=== PATIENT | female | born 1990 | race Caucasian/White ===

== ENCOUNTER 2022-01-31 11:34 | Outpatient (REF) | payer OTHER, SELFPAY ==
[2022-01-31 12:05] LABS: COVID-19 Test Negative (Negative)
== END 2022-01-31 11:35 | disposition home or self-care (01) ==
LOC: HO.LAB 11:34
PROVIDERS: Visit Provider Internal Medicine
DX: Z20.822 Contact with and (suspected) exposure to COVID-19 (principal)
CPT/HCPCS: 87635; C9803

== ENCOUNTER 2022-06-08 13:46 | Emergency (ER) | payer OTHER, SELFPAY ==
--- NOTE | ~2022-06-08 | XR_ITS ---
EXAMINATION: XR CHEST CLINICAL INFORMATION: Cough and leukocytosis COMPARISON: None TECHNIQUE: 2 views of the chest were obtained. FINDINGS: No significant abnormality is noted involving the heart, lungs, mediastinum, bony thorax or soft tissues. XR/XR chest 2V IMPRESSION: Unremarkable examination.
--- NOTE | 2022-06-08 13:53 | ED.PSYCH ---
HPI - Psych General Chief Complaint: ETOH/Substance Use Stated Complaint: seeking detox Time Seen by Provider: 06/08/22 13:49 Source: patient, EMS and old records reviewed Mode of arrival: EMS Limitations: no limitations History of Present Illness HPI Narrative: 31 yo female with history of IVDA, using approximately 3 bundles of heroin per day who presents to the ER from home via EMS after she was found using IV heroin in the bathroom by her parents. They are concerned about her safety. Per EMS patient has had IV drug use problem for 5 years. Patient arrives to the ER tearful and upset. When asked why she is here in the ER she said because of the client solutions manager. She is not sure if she wants help for her drug problem. MD complaint: feels depressed and substance abuse Onset (ago): unknown Duration: constant History of same: Yes Relieving factors: none Exacerbating factors: none Context: recent drug abuse Associated psychiatric symptoms: depression Associated symptoms: denies other symptoms Treatments prior to arrival: none Related Data Home Medications Medication Instructions Recorded Confirmed levothyroxine 50 mcg PO DAILY 06/08/22 06/08/22 Allergies Allergy/AdvReac Type Severity Reaction Status Date / Time No Known Allergies Allergy Verified 06/08/22 14:38 Review of Systems Review of Systems: Constitutional: No Fever, No Chills ENT/Mouth: No sore throat, No Rhinorrhea Cardiovascular: No Chest Pain, No SOB Respiratory: + Cough, No Sputum Gastrointestinal: No Nausea, No Vomiting, No Diarrhea, No abdominal Pain Genitourinary: No Dysuria, No Urinary Frequency, No Hematuria Musculoskeletal: No joint pain, No Myalgias Skin: No Skin Lesions, No rash Neuro: No Weakness, No Numbness, No Dizziness, No Headache Psych: No Anxiety/Panic, No Depression, No SI, No HI, No AH, No VH Heme/Lymph: + Bruising, No Lymphadenopathy PMFSH Social History Social History Advance Directives: No Advance Directives Information Provided: No Physical Exam Vital Signs: Vital Signs: Last Vital Signs Temp 98 F 06/08/22 14:14 Pulse 78 06/08/22 16:18 Resp 17 06/08/22 16:18 BP 126/81 06/08/22 16:18 Pulse Ox 96 06/08/22 16:18 O2 Del Method 06/08/22 16:18 BMI result Body Mass Index 20.7 Appearance: Alert. Oriented X3. Tearful on the stretcher Eyes: Pupils equal, round and reactive to light. ENT: Pharynx normal. Neck: Normal inspection. Neck supple. CVS: Normal heart rate and rhythm. Pulses normal. Respiratory: No respiratory distress. Breath sounds normal. Abdomen: Soft and nontender. +BS x4 Skin: Skin warm and dry. Normal skin color. Normal skin turgor. No rashes. Extremities: No lower extremity edema. Bilateral UE with track hernandez and ecchymotic areas in various stages of healing, no surrounding erythema or warmth Neuro/psych: Oriented X 3. No motor deficit. No sensory deficit. CN II-XII intact. Flat affect. Answers questions with simple answers. Makes eye contact. Tearful at times. Course Course Course Narrative: 31-year-old female with history of IV drug use, who reportedly uses 3 bundles of heroin per day presents to the ER for evaluation for possible detox after her mother found her using IV drugs in the bathroom today. Mother is worried about her safety would like to pursue a Section 35. Patient at this time denies any suicidal or homicidal ideation. It is she is agreeable to getting help and detox. Will get basic lab workup, U tox and have the etiquette coach see her for possible placement to a detox facility. Reevaluation(s) Reevaluation #1: Labs showing WBC 14.9. She does have a mild cough, will check x-ray. She is afebrile and hemodynamically stable, heart rate 100 on arrival when she was crying and tearful. Heart rate normalized to 78 when she was calm. COVID is negative. Her urinalysis is consistent with infection. Her leukocytosis is most likely due to this. She is not septic. Will start her on oral Macrobid. Patient spoke with the etiquette coach and patient did intake at [facility]. Hopeful for placement tomorrow once insurance is verified. Will place patient in physician observation at this time. Physician observation started at 17:30. Patient placed in physician observation because patient is awaiting placement to detox. Patient is not on a Section 12, more comfortable keeping her here overnight to ensure safety. At the time observation was started patient's vital signs were stable. Patient is alert and oriented. Neuro exam is non-focal. CV: RRR and lungs are clear. Will continue to monitor and monitor for opiate withdrawal. Time: 17:33 MDM - Psych Lab Data Result diagrams: 06/08/22 15:55 06/08/22 15:55 Labs: Lab Results 06/08/22 06/08/22 06/08/22 Range/Units 14:30 14:30 14:30 WBC (4.8-10.8) X10*3/uL RBC (4.20-5.50) X10*6/uL Hgb (12.0-16.0) g/dl Hct (37.0-47.0) % MCV (80.0-98.0) fL MCH (27.0-33.0) pg MCHC (31.0-35.0) g/dl RDW (11.0-16.0) % Plt Count (160-400) X10*3/uL MPV (9.4-12.3) fL Immature Gran % (Auto) (0.0-0.4) % Neut % (Auto) (45-73) % Lymph % (Auto) (20-40) % [place] % (Auto) (2-11) % Eos % (Auto) (0-4) % Baso % (Auto) (0-2) % Lymph # (Auto) (1.2-4.9) X10*3/uL [place] # (Auto) (0.1-1.2) X10*3/uL Eos # (Auto) (0.0-0.4) X10*3/uL Baso # (Auto) (0.0-0.2) X10*3/uL Abs Immat Gran (auto) (0.00-0.03) X10*3/uL Absolute Neuts (auto) (2.0-8.3) x10*3/uL Absolute Nucleated RBC (0.0-0.012) X10*3/uL Nucleated RBC % (auto) (0.0-0.2) /100WBC Sodium (135-145) mmol/L Potassium (3.3-5.1) mmol/L Chloride (96-108) mmol/L Carbon Dioxide (22-29) mmol/L Anion Gap (12-20) BUN (9-16) mg/dL Creatinine (0.5-1.4) mg/dL Estim Creat Clear Calc Estimated GFR Random Glucose (60-115) mg/dL Calcium (8.4-10.2) mg/dL Magnesium (1.6-2.6) mg/dL Total Bilirubin (0.0-1.0) mg/dL Direct Bilirubin (0.0-0.5) mg/dL AST (5-31) U/L ALT (0-31) U/L Alkaline Phosphatase (39-117) U/L Total Protein (6.5-8.0) g/dL Albumin (3.5-5.0) g/dL Urine Color Urine Appearance Urine pH (5.0-9.0) Ur Specific [place] (1.005-1.025) Urine Protein (Neg-Trace) mg/dL Urine Glucose (UA) (Negative) mg/dL Urine Ketones (Negative) mg/dL Urine Blood (Negative) Urine Nitrite (Negative) Ur Leukocyte Esterase (Negative) Urine RBC (0-2) /HPF Urine WBC (0-5) /HPF Ur Squamous Epith Cells (0-2) /HPF Urine Bacteria (None Seen) Hyaline Casts (0-2) /LPF Urine Test NEGATIVE (NEGATIVE) Urine Opiates Screen POSITIVE H (Not Detect) Urine Fentanyl Screen POSITIVE H (Not Detect) Ur Barbiturates Screen Not Detected (Not Detect) Ur Phencyclidine Scrn Not Detected (Not Detect) Ur Amphetamines Screen Not Detected (Not Detect) U Benzodiazepines Scrn Not Detected (Not Detect) Urine Cocaine Screen POSITIVE H (Not Detect) U Marijuana (THC) Screen Not Detected (Not Detect) Ethyl Alcohol mg/dL COVID-19 (SILVER) Negative (Negative) COVID-19 Clin Com See Note 06/08/22 06/08/22 06/08/22 Range/Units 14:40 15:55 15:55 WBC 14.9 H (4.8-10.8) X10*3/uL RBC 5.06 (4.20-5.50) X10*6/uL Hgb 14.5 (12.0-16.0) g/dl Hct 42.2 (37.0-47.0) % MCV 83.4 (80.0-98.0) fL MCH 28.7 (27.0-33.0) pg MCHC 34.4 (31.0-35.0) g/dl RDW 12.5 (11.0-16.0) % Plt Count 430 H (160-400) X10*3/uL MPV 8.9 L (9.4-12.3) fL Immature Gran % (Auto) 0.6 H (0.0-0.4) % Neut % (Auto) 80.0 H (45-73) % Lymph % (Auto) 13.4 L (20-40) % [place] % (Auto) 5.5 (2-11) % Eos % (Auto) 0.1 (0-4) % Baso % (Auto) 0.4 (0-2) % Lymph # (Auto) 2.0 (1.2-4.9) X10*3/uL [place] # (Auto) 0.8 (0.1-1.2) X10*3/uL Eos # (Auto) 0.0 (0.0-0.4) X10*3/uL Baso # (Auto) 0.1 (0.0-0.2) X10*3/uL Abs Immat Gran (auto) 0.09 H (0.00-0.03) X10*3/uL Absolute Neuts (auto) 11.9 H (2.0-8.3) x10*3/uL Absolute Nucleated RBC 0.000 (0.0-0.012) X10*3/uL Nucleated RBC % (auto) 0.0 (0.0-0.2) /100WBC Sodium 140 (135-145) mmol/L Potassium 4.1 (3.3-5.1) mmol/L Chloride 102 (96-108) mmol/L Carbon Dioxide 26 (22-29) mmol/L Anion Gap 16 (12-20) BUN 8 L (9-16) mg/dL Creatinine 0.68 (0.5-1.4) mg/dL Estim Creat Clear Calc 107.3 Estimated GFR > 60 Random Glucose 100 (60-115) mg/dL Calcium 9.3 (8.4-10.2) mg/dL Magnesium 2.0 (1.6-2.6) mg/dL Total Bilirubin 0.4 (0.0-1.0) mg/dL Direct Bilirubin 0.2 (0.0-0.5) mg/dL AST 87 H (5-31) U/L ALT 99 H (0-31) U/L Alkaline Phosphatase 122 H (39-117) U/L Total Protein 7.7 (6.5-8.0) g/dL Albumin 4.2 (3.5-5.0) g/dL Urine Color Yellow Urine Appearance Clear Urine pH 6.5 (5.0-9.0) Ur Specific [place] 1.010 (1.005-1.025) Urine Protein Trace (Neg-Trace) mg/dL Urine Glucose (UA) Negative (Negative) mg/dL Urine Ketones Negative (Negative) mg/dL Urine Blood Trace H (Negative) Urine Nitrite Negative (Negative) Ur Leukocyte Esterase Moderate (2+) H (Negative) Urine RBC 0-2 (0-2) /HPF Urine WBC 21-50 H (0-5) /HPF Ur Squamous Epith Cells 0-2 (0-2) /HPF Urine Bacteria None Seen (None Seen) Hyaline Casts 0-2 (0-2) /LPF Urine Test (NEGATIVE) Urine Opiates Screen (Not Detect) Urine Fentanyl Screen (Not Detect) Ur Barbiturates Screen (Not Detect) Ur Phencyclidine Scrn (Not Detect) Ur Amphetamines Screen (Not Detect) U Benzodiazepines Scrn (Not Detect) Urine Cocaine Screen (Not Detect) U Marijuana (THC) Screen (Not Detect) Ethyl Alcohol mg/dL COVID-19 (SILVER) (Negative) COVID-19 Clin Com 06/08/22 Range/Units 15:55 WBC (4.8-10.8) X10*3/uL RBC (4.20-5.50) X10*6/uL Hgb (12.0-16.0) g/dl Hct (37.0-47.0) % MCV (80.0-98.0) fL MCH (27.0-33.0) pg MCHC (31.0-35.0) g/dl RDW (11.0-16.0) % Plt Count (160-400) X10*3/uL MPV (9.4-12.3) fL Immature Gran % (Auto) (0.0-0.4) % Neut % (Auto) (45-73) % Lymph % (Auto) (20-40) % [place] % (Auto) (2-11) % Eos % (Auto) (0-4) % Baso % (Auto) (0-2) % Lymph # (Auto) (1.2-4.9) X10*3/uL [place] # (Auto) (0.1-1.2) X10*3/uL Eos # (Auto) (0.0-0.4) X10*3/uL Baso # (Auto) (0.0-0.2) X10*3/uL Abs Immat Gran (auto) (0.00-0.03) X10*3/uL Absolute Neuts (auto) (2.0-8.3) x10*3/uL Absolute Nucleated RBC (0.0-0.012) X10*3/uL Nucleated RBC % (auto) (0.0-0.2) /100WBC Sodium (135-145) mmol/L Potassium (3.3-5.1) mmol/L Chloride (96-108) mmol/L Carbon Dioxide (22-29) mmol/L Anion Gap (12-20) BUN (9-16) mg/dL Creatinine (0.5-1.4) mg/dL Estim Creat Clear Calc Estimated GFR Random Glucose (60-115) mg/dL Calcium (8.4-10.2) mg/dL Magnesium (1.6-2.6) mg/dL Total Bilirubin (0.0-1.0) mg/dL Direct Bilirubin (0.0-0.5) mg/dL AST (5-31) U/L ALT (0-31) U/L Alkaline Phosphatase (39-117) U/L Total Protein (6.5-8.0) g/dL Albumin (3.5-5.0) g/dL Urine Color Urine Appearance Urine pH (5.0-9.0) Ur Specific [place] (1.005-1.025) Urine Protein (Neg-Trace) mg/dL Urine Glucose (UA) (Negative) mg/dL Urine Ketones (Negative) mg/dL Urine Blood (Negative) Urine Nitrite (Negative) Ur Leukocyte Esterase (Negative) Urine RBC (0-2) /HPF Urine WBC (0-5) /HPF Ur Squamous Epith Cells (0-2) /HPF Urine Bacteria (None Seen) Hyaline Casts (0-2) /LPF Urine Test (NEGATIVE) Urine Opiates Screen (Not Detect) Urine Fentanyl Screen (Not Detect) Ur Barbiturates Screen (Not Detect) Ur Phencyclidine Scrn (Not Detect) Ur Amphetamines Screen (Not Detect) U Benzodiazepines Scrn (Not Detect) Urine Cocaine Screen (Not Detect) U Marijuana (THC) Screen (Not Detect) Ethyl Alcohol < 10 mg/dL COVID-19 (SILVER) (Negative) COVID-19 Clin Com Discharge Plan Discharge Clinical Impression: Active intravenous drug use, Acute UTI Patient Disposition: Still a Patient Prescriptions: No Action levothyroxine 50 mcg 50 mcg PO DAILY
[2022-06-08 14:14] VITALS: BP 140/93; BP 160/90; PULSE 100; RESP 18; TEMP 36.6; O2SAT 100; O2SAT 98; BMI 20.7
[2022-06-08 14:55] LABS: Urine Pregnancy NEGATIVE (NEGATIVE)
[2022-06-08 14:56] LABS: UPreg QC Valid YES
[2022-06-08 15:03] LABS: COVID-19 Test Negative (Negative); IDNOW Serial# 16C4AD1C
[2022-06-08 15:04] LABS: Amphetamine Screen Urine Not Detected (Not Detect); Barbiturates, Urine Not Detected (Not Detect); Benzodiazepines Screen Urine Not Detected (Not Detect); Cannabinoid Screen Urine Not Detected (Not Detect); Cocaine Screen Urine POSITIVE (Not Detect); Fentanyl, urine POSITIVE (Not Detect); Opiate Screen Urine POSITIVE (Not Detect); Phencyclidine Screen Urine Not Detected (Not Detect)
--- NOTE | 2022-06-08 15:30 | PC.NURSE ---
Patient requesting assistance with detox related to drug use. health coach notified. Patient seen by
[2022-06-08 15:35] VITALS: PULSE 100
[2022-06-08 15:38] LABS: Appearance Urine Clear; Color Urine Yellow; Glucose Urine UA Negative (Negative); Leukocyte Esterase Urine Moderate (2+) (Negative); Nitrite Urine Negative (Negative); PH 6.5 (5.0-9.0); UMIC TRIGGER UACC YES; Urine Blood Trace (Negative); Urine Ketones Negative (Negative); Urine Protein Trace mg/dL (Neg-Trace)
[2022-06-08 15:45] LABS: Bacteria Urine None Seen (None Seen); Hyaline Casts Urine 0-2 /LPF (0-2); RBC Urine 0-2 /HPF (0-2); Squamous Epithelial Cell Urine 0-2 /HPF (0-2); UACC Culture Trigger YES; WBC Urine 21-50 /HPF (0-5)
[2022-06-08 16:02] LABS: MANUAL DIFF FLAG NO
[2022-06-08 16:14] LABS: Ethanol < 10 mg/dL
[2022-06-08 16:18] VITALS: BP 126/81; PULSE 78; RESP 17; O2SAT 96
[2022-06-08 16:18] LABS: Alanine Aminotransferase 99 U/L (0-31); Albumin Level 4.2 g/dL (3.5-5.0); Alkaline Phosphatase 122 U/L (39-117); Anion Gap 16 (12-20); Aspartate Amino Transferase 87 U/L (5-31); Basophils Absolute Auto 0.1 X10*3/uL (0.0-0.2); Basophils Percent Auto 0.4 % (0-2); Bilirubin Direct 0.2 mg/dL (0.0-0.5); Bilirubin Total 0.4 mg/dL (0.0-1.0); Blood Urea Nitrogen 8 mg/dL (9-16); Calcium 9.3 mg/dL (8.4-10.2); Carbon Dioxide 26 mmol/L (22-29); Chloride 102 mmol/L (96-108); Creatinine Clr Calc Pharmacy 107.3; Eosinophils Percent Auto 0.1 % (0-4); Estimated Glomerular Filt Rate > 60; Glucose Random 100 mg/dL (60-115); Hematocrit 42.2 % (37.0-47.0); Hemoglobin 14.5 g/dl (12.0-16.0); Imm Gran Abs Auto 0.09 X10*3/uL (0.00-0.03); Imm Gran Pct Auto 0.6 % (0.0-0.4); Lymphocytes Percent Auto 13.4 % (20-40); Mean Corpuscular HGB Conc 34.4 g/dl (31.0-35.0); Mean Corpuscular Hemoglobin 28.7 pg (27.0-33.0); Mean Corpuscular Volume 83.4 fL (80.0-98.0); Mean Platelet Volume 8.9 fL (9.4-12.3); Monocytes Absolute Auto 0.8 X10*3/uL (0.1-1.2); Monocytes Percent Auto 5.5 % (2-11); Neutrophils Absolute Auto 11.9 x10*3/uL (2.0-8.3); Platelet Count 430 X10*3/uL (160-400); Potassium 4.1 mmol/L (3.3-5.1); Red Blood Count 5.06 X10*6/uL (4.20-5.50); Red Cell Distribution Width 12.5 % (11.0-16.0); Sodium 140 mmol/L (135-145); Total Protein 7.7 g/dL (6.5-8.0); White Blood Count 14.9 X10*3/uL (4.8-10.8)
[2022-06-08] MEDS: Ibuprofen 600 MG TABLET PO (16:48)
--- NOTE | 2022-06-08 17:02 | PC.NURSE ---
Patient referred to [facility] for Detox. Yudith states she will call in morning after insurance verification for placement. Patient information/paperwork faxed to Yudith [phone], confirmation received.
--- NOTE | 2022-06-08 17:12 | MHC.RECOVSUP ---
Addendum entered by Jeffrey Millan [facility] 06/08/22 17:24: Admission time 930 on 06/09 at [facility]. Original Note: Recovery Support note: Patient is a 31 year old [place]isian speaking female who presented to [facility] via EMS after her parents found her using substances. Patient expressed interest in receiving help for her substance use. Patient expressed a desire to stop using but a fear of withdrawal. Discussed different levels of care with patient. Patient agreeable to being referred to ATS facilities. Patient completed intake with [facility]. Plan to follow up with [facility] tomorrow morning to plan patient's admission. Discussed case with patient's RN.
[2022-06-08] MEDS: Nitrofurantoin Monohyd/M-Cryst 100 MG CAPSULE PO (21:28)
[2022-06-09 00:10] VITALS: BP 130/78; PULSE 82; RESP 15; TEMP 36.6; O2SAT 96
--- NOTE | 2022-06-09 05:45 | PC.NURSE ---
Patient slept through the night, no distress observed/reported, asymptomatic of ETOH withdrawal, med rec completed/pending provider's approval, patient was assessed by [facility] and recovery team, disposition detox bed search, recovery team coordinating the detox bed search, behavior non concerning, VSS, will continue to monitor.
[2022-06-09 08:07] VITALS: BP 156/87; PULSE 104; RESP 17; TEMP 36.6; O2SAT 95
[2022-06-09] MEDS: Nitrofurantoin Monohyd/M-Cryst 100 MG CAPSULE PO (08:21)
== END 2022-06-09 09:18 | disposition skilled nursing facility (03) ==
PROVIDERS: Physician Assistant; Emergency Provider Emergency Medicine
DX: F19.10 Other psychoactive substance abuse, uncomplicated (principal); N39.0 Urinary tract infection, site not specified; F32.A Depression, unspecified; R05.9 Cough, unspecified; Z20.822 Contact with and (suspected) exposure to COVID-19
CPT/HCPCS: 36415; 71046; 80048; 80076; 80307; 81001; 81025; 82077; 83735; 85025; 87086; 87635; 99284

== ENCOUNTER 2022-07-21 19:04 | Emergency (ER) | payer OTHER, SELFPAY ==
[2022-07-21 19:12] VITALS: BP 121/70; PULSE 94; RESP 17; TEMP 37.1; O2SAT 99; BMI 20.7
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
[2022-07-21 19:45] LABS: MANUAL DIFF FLAG NO
[2022-07-21 19:49] LABS: Basophils Absolute Auto 0.1 X10*3/uL (0.0-0.2); Basophils Percent Auto 0.6 % (0-2); Eosinophils Absolute Auto 0.1 X10*3/uL (0.0-0.4); Eosinophils Percent Auto 0.7 % (0-4); Hematocrit 33.8 % (37.0-47.0); Hemoglobin 11.8 g/dl (12.0-16.0); Imm Gran Abs Auto 0.03 X10*3/uL (0.00-0.03); Imm Gran Pct Auto 0.2 % (0.0-0.4); Lymphocytes Absolute Auto 1.7 X10*3/uL (1.2-4.9); Lymphocytes Percent Auto 12.2 % (20-40); Mean Corpuscular HGB Conc 34.9 g/dl (31.0-35.0); Mean Corpuscular Hemoglobin 29.4 pg (27.0-33.0); Mean Corpuscular Volume 84.3 fL (80.0-98.0); Mean Platelet Volume 9.6 fL (9.4-12.3); Monocytes Absolute Auto 1.1 X10*3/uL (0.1-1.2); Monocytes Percent Auto 8.1 % (2-11); Neutrophils Absolute Auto 10.9 x10*3/uL (2.0-8.3); Neutrophils Percent Auto 78.2 % (45-73); Platelet Count 297 X10*3/uL (160-400); Red Blood Count 4.01 X10*6/uL (4.20-5.50); Red Cell Distribution Width 12.9 % (11.0-16.0); White Blood Count 13.9 X10*3/uL (4.8-10.8)
[2022-07-21] MEDS: LORazepam 1 MG TABLET 2 MG PO (19:56)
[2022-07-21 20:06] LABS: Alanine Aminotransferase 95 U/L (0-31); Albumin Level 3.5 g/dL (3.5-5.0); Alkaline Phosphatase 45 U/L (39-117); Anion Gap 14 (12-20); Aspartate Amino Transferase 235 U/L (5-31); Bilirubin Total 0.7 mg/dL (0.0-1.0); Blood Urea Nitrogen 13 mg/dL (9-16); Calcium 8.7 mg/dL (8.4-10.2); Carbon Dioxide 25 mmol/L (22-29); Chloride 101 mmol/L (96-108); Creatinine Clr Calc Pharmacy 94.7; Estimated Glomerular Filt Rate > 60; Ethanol < 10 mg/dL; Glucose Random 87 mg/dL (60-115); Potassium 3.7 mmol/L (3.3-5.1); Sodium 136 mmol/L (135-145)
[2022-07-21 20:27] LABS: Influenza A PCR NEGATIVE (Negative); Influenza B PCR NEGATIVE (Negative); Resp Syncy Virus RNA Qual PCR NEGATIVE (Negative); SARS COV2 PCR INHOUSE NEGATIVE (Negative)
[2022-07-21 23:13] VITALS: BP 106/54; PULSE 87; RESP 16; TEMP 37.1; O2SAT 95
[2022-07-21 23:53] LABS: Appearance Urine Clear; Color Urine Dark Yellow; Glucose Urine UA Negative (Negative); Leukocyte Esterase Urine Trace (Negative); Nitrite Urine Negative (Negative); PH 5.5 (5.0-9.0); Specific Gravity - Urine >= 1.030 (1.005-1.025); UMIC TRIGGER UACC YES; Urine Blood Moderate (2+) (Negative); Urine Ketones 15 mg/dL (Negative); Urine Protein 30 (1+) mg/dL (Neg-Trace)
[2022-07-21 23:54] LABS: UPreg QC Valid YES; Urine Pregnancy NEGATIVE (NEGATIVE)
[2022-07-21 23:58] LABS: Bacteria Urine Trace (None Seen); Hyaline Casts Urine 0-2 /LPF (0-2); RBC Urine >20 /HPF (0-2); WBC Urine 0-5 /HPF (0-5)
[2022-07-22 00:05] LABS: Amphetamine Screen Urine Not Detected (Not Detect); Barbiturates, Urine Not Detected (Not Detect); Benzodiazepines Screen Urine Not Detected (Not Detect); Cannabinoid Screen Urine Not Detected (Not Detect); Cocaine Screen Urine POSITIVE (Not Detect); Fentanyl, urine POSITIVE (Not Detect); Opiate Screen Urine POSITIVE (Not Detect); Phencyclidine Screen Urine Not Detected (Not Detect)
--- NOTE | 2022-07-22 00:12 | MHC.CARE ---
CARE team aware of pt. Tox screen requested, pt unable to provide urine sample. Pt is visibly under the influence of substances and is not yet appropriate for assessment. Pt will be evaluated in the morning.
[2022-07-22] MEDS: Nitrofurantoin Monohyd/M-Cryst 100 MG CAPSULE PO (04:43)
--- NOTE | 2022-07-22 05:14 | PC.NURSE ---
Patient slept intermittently, periodically moaning, Ativan 2 mg po administered at the time of arrival with + effect, patient + for UTI, 1st dose Macrobid 100 mg administered, patient will be assessed by care team in the morning, med rec completed/pending provider' approval, pending methadone verification at this time, no distress observed/reported, VSS, will continue to monitor.
--- NOTE | 2022-07-22 06:17 | PC.NURSE ---
Methadone dose verified, patient takes 60 mg daily, Med rec updated/pending provider's approval, pharmacy faxed,
--- NOTE | 2022-07-22 07:11 | HE.PHANOTE ---
METHADONE CONFIRMATION FORM FOR 60 MG RECEIEVED FROM [facility]
[2022-07-22 09:35] VITALS: BP 120/69; PULSE 89; RESP 19; TEMP 36.7; O2SAT 96
--- NOTE | 2022-07-22 09:36 | MHC.CARE ---
CARE Team attempted to meet with Pt. Pt not engagable at this time.
[2022-07-22] MEDS: methADONE HCl 10 MG TABLET 60 MG PO (09:58)
[2022-07-22] MEDS: Levothyroxine Sodium 50 MCG TABLET PO (09:58)
--- NOTE | 2022-07-22 10:35 | MHC.CARE ---
Pt continues to not be engageable at this time.
--- NOTE | 2022-07-22 11:04 | PC.NURSE ---
slept most of the morning, awoke and was fidgety and requesting her methadone, meds given, pt has swollen hands and requested to have her rings removed, unable to get them off w lissette etc, needed to cut them off, pct jaja got written permission and is working on removal at this time
--- NOTE | 2022-07-22 12:21 | MHC.CARE ---
CARE Team attempted to meet with Pt who continues to present as sedate.
--- NOTE | 2022-07-22 12:21 | MHC.CARE ---
CARE Team spoke with Elaine [address] psychologist - petition has been allowed for section pending evaluation.
--- NOTE | 2022-07-22 15:07 | PC.NURSE ---
alert, speech clear, steady gait. discharged to waiting room and picked up by [facility]
== END 2022-07-22 15:08 | disposition home or self-care (01) ==
PROVIDERS: Nurse Practitioner Family; Emergency Provider Emergency Medicine Emergency Medical Services
DX: F11.959 Opioid use, unspecified with opioid-induced psychotic disorder, unspecified (principal); R45.851 Suicidal ideations; N39.0 Urinary tract infection, site not specified; F41.1 Generalized anxiety disorder; F43.0 Acute stress reaction; Z20.822 Contact with and (suspected) exposure to COVID-19; Z79.899 Other long term (current) drug therapy
CPT/HCPCS: 0241U; 36415; 80053; 80307; 81001; 81025; 82077; 85025; 99284